=== PATIENT | male | born 1995 | race African-American/Black ===

== ENCOUNTER 2024-07-21 01:32 | Emergency (ER) | payer SELFPAY ==
[~2024-07-21] VITALS: Ht 185.4 cm; Wt 72.0 kg
[2024-07-21 01:50] VITALS: O2SAT 100
[2024-07-21 01:54] VITALS: BP 117/80; PULSE 61; RESP 16; TEMP 36.89184; O2SAT 100
== END 2024-07-21 04:09 | disposition left against medical advice (07) ==
LOC: ER 01:49
DX: B34.9 Viral infection, unspecified (principal)
CPT/HCPCS: 99281